=== PATIENT | female | born 1950 | race Two or more races ===

== ENCOUNTER → 2018-04-05 | Outpatient (CLI) | payer OTHER | END | disposition home or self-care (01) | LOC: RAD 501 13:28 | DX: N20.0 Calculus of kidney (principal) ==

== ENCOUNTER 2021-05-27 06:22 | Day surgery (SDC) | payer OTHER ==
[~2021-05-27 06:22] MED LIST: BONIVA150 MG PO; CLONAZEPAM1 M1 PO; D3 + K2 DOTS 11 EACH PO; LIPITOR40 MG PO; WELLBUTRIN SR150 MG PO; ZETIA10 MG PO
== END 2021-05-27 16:35 | disposition home or self-care (01) ==
LOC: CIR.AMB 06:22
PROVIDERS: ATTEND Orthopaedic Surgery Hand Surgery
DX: M66.252 Spontaneous rupture of extensor tendons, left thigh (principal); Z20.822 Contact with and (suspected) exposure to COVID-19; I10 Essential (primary) hypertension; E78.5 Hyperlipidemia, unspecified; F41.9 Anxiety disorder, unspecified